=== PATIENT | male | born 1995 | race Caucasian/White ===

== ENCOUNTER 2020-04-10 17:07 | Emergency (ER) | payer OTHER, SELFPAY ==
--- NOTE | ~2020-04-10 | CT_ITS ---
EXAMINATION: CT abdomen pelvis w con INDICATION: Periumbilical/right lower quadrant pain TECHNIQUE: Computed tomographic images of the abdomen and pelvis were obtained after the administrati on of 100 cc of Omnipaque 350 intravenous contrast. The dose-length product (DLP) was 1502.33 mGy-cm. Automated exposure control and iterative reconstruction technique were employed. COMPARISON: None available FINDINGS: The lung bases are clear. The heart size is normal. The liver, pancreas, gallbladder, and a drenal glands are normal. There is mild splenomegaly, likely related to body habitus. There is patchy perfusion of the kidneys. No pathologically enlarged abdominal or pelvic lymph nodes are identified. There is no free intraperitoneal gas or evidence of bowel obstruction. The appendix is normal. There is an H shaped T11 vertebra. IMPRESSION: 1. Patchy perfusion of the kidneys which would normally suggest pyelonephritis but is of unclear sign ificance given patient's normal urinalysis. Normal appendix. Reviewed, dictated and finalized at location A. EDGE SEWER IMPRESSION: 1. Patchy perfusion of the kidneys which would normally suggest pyelonephritis but is of unclear significance given patient's normal urinalysis. Normal append ix.
[2020-04-10 17:26] VITALS: BP 148/91; PULSE 106; RESP 22; TEMP 36.4; O2SAT 100
[2020-04-10 17:54] LABS: Basophils Absolute Auto 0.1 K/mm3 (0.0-0.1); Basophils Percent Auto 0.3 % (0.2-1.2); Eosinophils Absolute Auto 0.3 K/mm3 (0-0.3); Eosinophils Percent Auto 1.7 % (0-4.4); Hematocrit 39.1 % (42.0-52.0); Hemoglobin 13.1 g/dL (14.0-18.0); Immature Granulocyte Absolute 0.22 K/mm3 (0.00-0.031); Immature Granulocyte Percent A 1.3 % (0-0.5); Lymphocytes Absolute Auto 2.33 K/mm3 (0.9-3.2); Lymphocytes Percent Auto 13.3 % (18.3-44.2); Mean Corpuscular HGB Conc 33.5 g/dl (32-36); Mean Corpuscular Volume 86.5 fl (80-100); Mean Platelet Volume 9.4 fl (7.4-10.4); Monocytes Absolute Auto 1.1 K/mm3 (0.1-0.6); Monocytes Percent Auto 6.4 % (2.6-8.5); Neutrophils Absolute Auto 13.5 K/mm3 (1.3-6.7); Platelet Count Result 296 k/mm3 (150-375); Red Blood Count 4.52 M/mm3 (4.6-6.20); Red Cell Distribution Width 13.1 % (11.5-14.5); White Blood Count 17.6 K/mm3 (4.5-10.0)
[2020-04-10 17:56] LABS: Add Urine Microscopic? NO; Appearance Urine Clear (Clear); Bilirubin Urine Negative (Negative); Blood Urine Negative (Negative); Color Urine Straw (Yellow); Glucose Urine UA Negative (Negative); Ketones Urine Negative (Negative); Leukocyte Esterase Ur Negative LEU/UL (Negative); Nitrate Urine Negative (Negative); Protein Urine Negative (Negative); Specific Grav Ur 1.008 (1.001-1.035); Urobilinogen Urine Negative mg/dL (<2.0)
[2020-04-10 18:08] LABS: Alanine Aminotransferase 18 U/L (4-50); Albumin Level 3.8 g/dL (3.5-5.1); Alkaline Phosphatase 118 U/L (38-126); Anion Gap 6 mmol/L (8-16); Aspartate Amino Transferase 24 U/L (17-59); Bilirubin,Total 0.3 mg/dL (0.2-1.3); Blood Urea Nitrogen 8 mg/dL (9-20); Calcium 8.9 mg/dL (8.4-10.2); Carbon Dioxide 30 mmol/L (22-30); Chloride 104 mmol/L (98-107); Estimated CRCL calculation 145 ml/min; Estimated Glomerular Filt Rate > 60; Glucose 109 mg/dL (75-110); Lipase 32 U/L (23-300); Potassium 3.4 mmol/L (3.4-5.0); Sodium 140 mmol/L (137-145)
--- NOTE | 2020-04-10 18:31 | ED.GENADULT ---
HPI - General Adult General Chief complaint: Abdominal Pain <DEV Pascal Last Filed: 04/10/20 20:36> Stated complaint: abdominal pain, right heel pain <DEV Pascal Last Filed: 04/10/20 20:36> Time Seen by Provider: 04/10/20 17:41 <DEV Pascal Last Filed: 04/10/20 20:36> Source: patient <DEV Pascal Last Filed: 04/10/20 20:36> Mode of arrival: ambulatory <DEV Pascal Last Filed: 04/10/20 20:36> Limitations: no limitations <DEV Pascal Last Filed: 04/10/20 20:36> History of Present Illness HPI narrative: 24-year-old male who is here with complaint of right lower quadrant and periumbilical pain that he states started this morning. Pain is worse when he walks. He has had diarrhea for greater than 1 week. Diarrhea is normal in color, no vomiting. States that he has chills but does not have a fever. He did eat this a.m. <Kate Adames PA-C - Last Filed: 04/10/20 20:36> Onset (ago): hour(s) <DEV Pascal Last Filed: 04/10/20 20:36> Radiation: periumbilical <DEV Pascal Last Filed: 04/10/20 20:36> Severity: moderate <DEV Pascal Last Filed: 04/10/20 20:36> Quality: stabbing <DEV Pascal Last Filed: 04/10/20 20:36> Relieving factors: none <DEV Pascal Last Filed: 04/10/20 20:36> Related Data Home medications: Home Medications Medication Instructions Recorded Confirmed divalproex [Depakote] 500 mg PO Q8H 04/11/20 04/12/20 hydroxyzine HCl 10 mg PO QID 04/11/20 04/12/20 loratadine 10 mg PO DAILY 04/11/20 04/11/20 naproxen 500 mg PO DAILY 04/11/20 04/12/20 orphenadrine citrate 100 mg PO DAILY 04/11/20 04/12/20 quetiapine 300 mg PO BID 04/11/20 04/11/20 acetaminophen 650 mg PO Q4-6M PRN 04/12/20 04/12/20 cholecalciferol (vitamin D3) 50,000 mg PO WEEKLY 04/12/20 04/12/20 fluoxetine 40 mg PO DAILY 04/12/20 04/12/20 <Kate Adames PA-C - Last Filed: 04/10/20 20:36> Allergies/adverse reactions: Allergies Allergy/AdvReac Type Severity Reaction Status Date / Time No Known Allergies Allergy Verified 04/12/20 00:08 <Kate Adames PA-C - Last Filed: 04/10/20 20:36> Review of Systems Review of Systems: All systems reviewed & are unremarkable except as noted in HPI and below <Kate Adames PA-C - Last Filed: 04/10/20 20:36> [facility] Past Medical History Medical History: Medical History Anxiety Cataract Depression Muscular dystrophy <Kate Adames PA-C - Last Filed: 04/10/20 20:36> Surgical History Surgical History: Surgical History H/O cataract removal with insertion of prosthetic lens History of biopsy History of muscle biopsy History of hernia repair As an History of mandibular surgery Hx of LASIK <DEV Pascal Last Filed: 04/10/20 20:36> Social History Social History: Social History Smoking status: Never smoker Alcohol intake: current Drinks per week: 1 Substance use: never Gender identity (if verbalized by the patient): Male Spiritual care concerns: No <Kate Adames PA-C - Last Filed: 04/10/20 20:36> Exam Const: General: no acute distress and alert <DEV Pascal Last Filed: 04/10/20 20:36> Nutritional Appearance: obese <DEV Pascal Last Filed: 04/10/20 20:36> Orientation/consciousness: patient oriented x3 <DEV Pascal Last Filed: 04/10/20 20:36> HENMT: Head: normal to inspection <DEV Pascal Last Filed: 04/10/20 20:36> Eyes: Conjunctivae: conjunctivae normal <DEV Pascal Last Filed: 04/10/20 20:36> Resp: Effort & Inspection: normal respiratory effort <DEV Psacal Filed
--- NOTE | 2020-04-10 18:45 | ER_ITS ---
This report was recreated on May 28, 2020. Original report was signed by Dr. Addy Hauser on April 13, 2020 at 0148. HPI - General Adult General Chief complaint: Abdominal Pain <DEV Pascal Last Filed: 04/10/20 20:36> Stated complaint: abdominal pain, right heel pain <DEV Pascal Last Filed: 04/10/20 20:36> Time Seen by Provider: 04/10/20 17:41 <DEV Pascal Last Filed: 04/10/20 20:36> Source: patient <DEV Pascal Last Filed: 04/10/20 20:36> Mode of arrival: ambulatory <DEV Pascal Last Filed: 04/10/20 20:36> Limitations: no limitations <DEV Pascal Last Filed: 04/10/20 20:36> History of Present Illness HPI narrative: 24-year-old male who is here with complaint of right lower quadrant and periumbilical pain that he states started this morning. Pain is worse when he walks. He has had diarrhea for greater than 1 week. Diarrhea is normal in color, no vomiting. States that he has chills but does not have a fever. He did eat this a.m. <Kate Admaes PA-C - Last Filed: 04/10/20 20:36> Onset (ago): hour(s) <DEV Pascal Last Filed: 04/10/20 20:36> Radiation: periumbilical <DEV Pascal Last Filed: 04/10/20 20:36> Severity: moderate <DEV Pascal Last Filed: 04/10/20 20:36> Quality: stabbing <DEV Pascal Last Filed: 04/10/20 20:36> Relieving factors: none <DEV Pascal Last Filed: 04/10/20 20:36> Related Data Home medications: Home Medications Medication Instructions Recorded Confirmed divalproex [Depakote] 500 mg PO Q8H 04/11/20 04/12/20 hydroxyzine HCl 10 mg PO QID 04/11/20 04/12/20 loratadine 10 mg PO DAILY 04/11/20 04/11/20 naproxen 500 mg PO DAILY 04/11/20 04/12/20 orphenadrine citrate 100 mg PO DAILY 04/11/20 04/12/20 quetiapine 300 mg PO BID 04/11/20 04/11/20 acetaminophen 650 mg PO Q4-6M PRN 04/12/20 04/12/20 cholecalciferol (vitamin D3) 50,000 mg PO WEEKLY 04/12/20 04/12/20 fluoxetine 40 mg PO DAILY 04/12/20 04/12/20 <Kate Adames PA-C - Last Filed: 04/10/20 20:36> Allergies/adverse reactions: Allergies Allergy/AdvReac Type Severity Reaction Status Date / Time No Known Allergies Allergy Verified 04/12/20 00:08 <Kate Adames PA-C - Last Filed: 04/10/20 20:36> Review of Systems Review of Systems: All systems reviewed & are unremarkable except as noted in HPI and below <Kate Adames PA-C - Last Filed: 04/10/20 20:36> [facility] Past Medical History Medical History: Medical History Anxiety Cataract Depression Muscular dystrophy <Kate Adames PA-C - Last Filed: 04/10/20 20:36> Surgical History Surgical History: Surgical History H/O cataract removal with insertion of prosthetic lens History of biopsy History of muscle biopsy History of hernia repair As an infant History of mandibular surgery Hx of LASIK <Kate Adames PA-C - Last Filed: 04/10/20 20:36> Social History Social History: Social History Smoking status: Never smoker Alcohol intake: current Drinks per week: 1 Substance use: never Gender identity (if verbalized by the patient): Male Spiritual care concerns: No <Kate Adames PA-C - Last Filed: 04/10/20 20:36> Exam Const: General: no acute distress and alert <Kate Adames PA-C - Last Filed: 04/10/20
[2020-04-10 19:00] VITALS: BP 136/78; PULSE 88; RESP 16; O2SAT 99
[2020-04-10] MEDS: SODIUM CHLORIDE 0.9% IV 1,000 ML 999 ML IV CONT (19:00)
[2020-04-10] MEDS: KETOROLAC 30 MG/ML VIAL (*BKC) IV PUSH (21:03)
[2020-04-10 21:05] VITALS: BP 136/80; PULSE 78; RESP 14; O2SAT 99
[2020-04-10 21:50] VITALS: BP 138/77; PULSE 78; RESP 16; O2SAT 99
== END 2020-04-10 21:52 | disposition home or self-care (01) ==
PROVIDERS: Emergency Medicine; Emergency Provider General Practice
DX: R10.33 Periumbilical pain (principal); R19.7 Diarrhea, unspecified; G71.00 Muscular dystrophy, unspecified; F41.9 Anxiety disorder, unspecified; F32.9 Major depressive disorder, single episode, unspecified; Z98.49 Cataract extraction status, unspecified eye; Z96.1 Presence of intraocular lens
CPT/HCPCS: 36415; 74177; 80053; 81003; 83690; 85025; 96361; 96374; 99284; J1885; J7030; Q9967

== ENCOUNTER 2020-04-11 15:49 | Observation (INO) | payer OTHER, SELFPAY ==
--- NOTE | ~2020-04-11 | CT_ITS ---
EXAMINATION: CT abdomen pelvis w con INDICATION: Abdominal pain and fever TECHNIQUE: Computed tomographic images of the abdomen and pelvis were obtained after the administrati on of 100 cc of Omnipaque 350 intravenous contrast. The dose-length product (DLP) was 1533.66 mGy-cm. Automated exposure control and iterative reconstruction technique were employed. COMPARISON: 04/10/2020 FINDINGS: The lung bases are clear. The heart size is normal. The liver, pancreas, gallbladder, and a drenal glands are normal. Mild patchy perfusion of the kidneys is again noted. No pathologically enla rged abdominal or pelvic lymph nodes are identified. There is no free intraperitoneal gas or evidence of bowel obstruction. An H shaped T11 vertebra is again noted. The appendix is normal. IMPRESSION: 1. Persistent patchy perfusion of the kidneys of unclear etiology or significance given normal urinal ysis. 2. Splenomegaly, possibly related to body habitus. Reviewed, dictated and finalized at location A. [facility] [employer] OPERATOR HELPER IMPRESSION: 1. Persistent patchy perfusion of the kidneys of unclear etiology or significan ce given normal urinalysis. 2. Splenomegaly, possibly related to body habitus.
--- NOTE | ~2020-04-11 | XR_ITS ---
EXAMINATION: XR chest 2V DATE: 04/11/2020 19:16 INDICATION: Cough and fever TECHNIQUE: PA and lateral views of the chest are obtained. COMPARISON: None available FINDINGS: The lungs are free of acute opacities. There is no pleural effusion or pneumothorax. The ca rdiomediastinal silhouette is normal. The visualized bones and soft tissues are unremarkable. IMPRESSION: 1. No acute cardiopulmonary abnormality. Reviewed, dictated and finalized at location A. ENTER FOR[employer]AN
[2020-04-11 16:43] VITALS: BP 145/94; PULSE 107; RESP 17; TEMP 36.8; O2SAT 100
[2020-04-11 16:56] LABS: Basophils Absolute Auto 0.1 K/mm3 (0.0-0.1); Basophils Percent Auto 0.3 % (0.2-1.2); Eosinophils Absolute Auto 0.2 K/mm3 (0-0.3); Eosinophils Percent Auto 1.1 % (0-4.4); Hematocrit 39.4 % (42.0-52.0); Hemoglobin 13.3 g/dL (14.0-18.0); Immature Granulocyte Absolute 0.18 K/mm3 (0.00-0.031); Immature Granulocyte Percent A 1.2 % (0-0.5); Lymphocytes Absolute Auto 2.04 K/mm3 (0.9-3.2); Lymphocytes Percent Auto 13.7 % (18.3-44.2); Mean Corpuscular HGB Conc 33.8 g/dl (32-36); Mean Corpuscular Volume 85.8 fl (80-100); Mean Platelet Volume 9.2 fl (7.4-10.4); Monocytes Absolute Auto 0.9 K/mm3 (0.1-0.6); Monocytes Percent Auto 6.3 % (2.6-8.5); Neutrophils Absolute Auto 11.5 K/mm3 (1.3-6.7); Neutrophils Percent Auto 77.4 % (45.5-73.1); Platelet Count Result 276 k/mm3 (150-375); Red Blood Count 4.59 M/mm3 (4.6-6.20); Red Cell Distribution Width 13.1 % (11.5-14.5); White Blood Count 14.9 K/mm3 (4.5-10.0)
[2020-04-11 17:05] LABS: Lactic Acid Reflex 2.6 mmol/L (0.7-2.1)
[2020-04-11 17:07] LABS: Alanine Aminotransferase 17 U/L (4-50); Albumin Level 3.7 g/dL (3.5-5.1); Alkaline Phosphatase 105 U/L (38-126); Anion Gap 7 mmol/L (8-16); Aspartate Amino Transferase 21 U/L (17-59); Bilirubin,Total 0.3 mg/dL (0.2-1.3); Blood Urea Nitrogen 6 mg/dL (9-20); Carbon Dioxide 29 mmol/L (22-30); Chloride 104 mmol/L (98-107); Estimated CRCL calculation 115 ml/min; Estimated Glomerular Filt Rate > 60; Glucose 123 mg/dL (75-110); Lipase 26 U/L (23-300); Potassium 3.3 mmol/L (3.4-5.0); Sodium 140 mmol/L (137-145)
--- NOTE | 2020-04-11 18:58 | ED.GENADULT ---
HPI - General Adult General Source: RN notes reviewed History of Present Illness HPI narrative: Patient presents to emergency department from home for abdominal pain. Patient states he has had abdominal pain for the past 3 days pain is located around the periumbilical area and does not radiate. States is associated with nausea as well as a fever up to 101 today he denies having any chest pain shortness of breath coughing or vomiting he does state he has had some diarrhea as well as pain with urination patient was seen in the emergency department yesterday and had a work-up with a leukocytosis and a CT scan showing patchy perfusion to the kidneys but had a normal UA and he was discharged on Flagyl Related Data Home Medications Medication Instructions Recorded Confirmed divalproex [Depakote] 500 mg PO Q8H 04/11/20 04/12/20 hydroxyzine HCl 10 mg PO QID 04/11/20 04/12/20 loratadine 10 mg PO DAILY 04/11/20 04/11/20 naproxen 500 mg PO DAILY 04/11/20 04/12/20 orphenadrine citrate 100 mg PO DAILY 04/11/20 04/12/20 quetiapine 300 mg PO BID 04/11/20 04/11/20 acetaminophen 650 mg PO Q4-6M PRN 04/12/20 04/12/20 cholecalciferol (vitamin D3) 50,000 mg PO WEEKLY 04/12/20 04/12/20 fluoxetine 40 mg PO DAILY 04/12/20 04/12/20 Allergies Allergy/AdvReac Type Severity Reaction Status Date / Time No Known Allergies Allergy Verified 04/12/20 00:08 Review of Systems Review of Systems: Narrative: Gen.: Reports fever ENT: Denies congestion Respiratory: Denies shortness of breath or cough CV: Denies chest pain or palpitations GI: Reports abdominal pain and nausea and diarrhea. Denies emesis reports dysuria Musculoskeletal: Denies back pain or muscle pain Neuro: Denies numbness, tingling, weakness or focal weakness Skin: Denies rash Except as documented, all other systems reviewed and negative [facility] Past Medical History Medical History Anxiety Cataract Depression Muscular dystrophy Surgical History Surgical History H/O cataract removal with insertion of prosthetic lens History of biopsy History of muscle biopsy History of hernia repair As an History of mandibular surgery Hx of LASIK Social History Social History Smoking status: Never smoker Alcohol intake: current Drinks per week: 1 Substance use: never Gender identity (if verbalized by the patient): Male Spiritual care concerns: No Exam Narrative: Exam Narrative: APPEARANCE: No acute distress, nontoxic, resting in bed HEENT: Normocephalic, atraumatic, OMM RESPIRATORY: No respiratory distress, clear to auscultation bilaterally with no rhonchi wheezing or rales CARDIOVASCULAR: RRR s murmur ABDOMINAL: Soft, nondistended tender palpation periumbilical and left lower quadrant no tenderness left upper quadrant right upper quadrant right lower quadrant no rebound or guarding, mild left flank tenderness MUSCULOSKELETAl: Moves all extremities. No clubbing, cyanosis or edema. NEURO: Awake and alert. Following commands, speech normal, no focal deficits SKIN:: Warm, dry. Normal Color PSYCHIATRIC: Normal affect/mood Course Course Emergency Course: Reviewed old records Discussed with urology Dr. Ng presentation work-up discussed the patient's CT scan from last night and current UA at this time with normal UA does not feel that this is a urologic process Called and discussed with Dr. Cosme presentation work-up. Agrees to consult this time. Request patient have Levaquin added onto Flagyl and will follow as inpatient agrees with plan to hold with CT right now Discussed with Dr. Miller presentation work-up discussed my conversations with previous consultants. At this time Dr. Miller requesting CT scan abdomen pelvis with the patient does have a new fever since yesterday as well as a lactic acid
[2020-04-11 19:27] VITALS: BP 148/94; PULSE 107; RESP 18; O2SAT 99
[2020-04-11] MEDS: SODIUM CHLORIDE 0.9% IV 1,000 ML 999 ML IV CONT (19:27)
[2020-04-11 19:35] LABS: CRP 3.6 mg/dL (<1.0)
[2020-04-11 19:37] LABS: Add Urine Microscopic? NO; Appearance Urine Clear (Clear); Bilirubin Urine Negative (Negative); Blood Urine Negative (Negative); Color Urine Straw (Yellow); Glucose Urine UA Negative (Negative); Ketones Urine Negative (Negative); Leukocyte Esterase Ur Negative LEU/UL (Negative); Nitrate Urine Negative (Negative); Protein Urine Negative (Negative); Specific Grav Ur 1.008 (1.001-1.035); Urobilinogen Urine Negative mg/dL (<2.0)
[2020-04-11 19:52] LABS: Reflex Lactic Acid Yes or No Add Lactic
[2020-04-11 20:33] LABS: Lactic Acid 1.5 mmol/L (0.7-2.1)
--- NOTE | 2020-04-11 21:24 | PM.IMHP ---
H&P: HPI History of Present Illness Date/Time: 04/11/20 21:24 Chief Complaint: lower abdominal pain for over 1 week Narrative: This is a 24 year old obese male with known depression who presented to the hospital for a return visit for severe lower abdominal pain for the past week. The patient reports that he was constipated about 5 weeks ago and was treated with a bowel boiler cleaner and an antibiotic. Since then he has had a few weeks of wattery diarrhea which is 3-4 times daily. He denies any blood in his stool. His lower abdominal pain is worse after urinating but he denies any dysuria. Over the past few days he has been more nauseated and today he had a fever of 101 F. He denies any vomiting tonight. He also denies any shortness of breath, cough, chest pain, palpitations, rectal bleeding, or LE swelling. His last meal was yesterday at lunch when he ate a sandwich. The patient was evaluated in the ER tonight and his WBC was found to be 14,900. Lactic acid was elevated at 2.6. CT abd/pelvis showed persistent patchy perfusion of the kidneys. General surgery has been consulted by ER provider and we have been asked to admit the patient to the hospital for continued care. He has no other complaints at this time. Review of Systems Review of Systems: All systems reviewed & are unremarkable except as noted in HPI and below PMFSH Past Medical History Medical History Cataract Depression Hernia Muscular dystrophy Surgical History Surgical History H/O cataract removal with insertion of prosthetic lens Social History Social History Smoking status: Never smoker Alcohol intake: current Drinks per week: 1 Substance use: never Gender identity (if verbalized by the patient): Male Spiritual care concerns: No Meds Home Medications and Allergies Home Medications Medication Instructions Recorded Confirmed Type divalproex [Depakote] 500 mg PO Q8H 04/11/20 04/12/20 History hydroxyzine HCl 10 mg PO QID 04/11/20 04/12/20 History loratadine 10 mg PO DAILY 04/11/20 04/11/20 History naproxen 500 mg PO DAILY 04/11/20 04/12/20 History orphenadrine citrate 100 mg PO DAILY 04/11/20 04/12/20 History quetiapine 300 mg PO BID 04/11/20 04/11/20 History acetaminophen 650 mg PO Q4-6M PRN 04/12/20 04/12/20 History cholecalciferol (vitamin D3) 50,000 mg PO WEEKLY 04/12/20 04/12/20 History fluoxetine 40 mg PO DAILY 04/12/20 04/12/20 History Allergies Allergy/AdvReac Type Severity Reaction Status Date / Time No Known Allergies Allergy Verified 04/12/20 00:08 Vital Signs Vital Signs - 24 hr 04/11/20 16:43 04/11/20 19:27 Temperature 36.8 C Pulse Rate 107 H 107 H Respiratory Rate 17 18 Blood Pressure 145/94 H 148/94 H Pulse Oximetry 100 99 Exam Const: General: cooperative, alert, awake and ill appearing Nutritional Appearance: well nourished and obese Orientation/consciousness: patient oriented x3 HENMT: Head: normal to inspection General nose exam: Normal external nose present Face and sinus: normal facial exam Mouth: Yes Normal oral and palatal mucosa present and Yes oropharynx normal Eyes: Pupils: Equal, round and reactive pupils present EOM: EOMs intact bilaterally Neck: Neck: supple and no JVD Thyroid: thyroid normal Lymphatic: lymphadenopathy not noted Resp: Effort & Inspection: normal respiratory effort Auscultation: clear to auscultation bilaterally Cardio: Rate: regular rate Rhythm: regular rhythm Heart sounds: no murmurs GI: Inspection: normal to inspection GI Palp: Yes abdominal tenderness (Lower abd++ ) Rectal Exam: deferred Skin: General skin exam: normal color and no rashes or lesions noted Neuro: General: patient oriented x3 Cranial nerves: Yes CN's II-XII intact bilaterally and Yes Equal, round and reactive pupils pres
[2020-04-11 21:29] VITALS: BP 137/101; PULSE 98; RESP 18; O2SAT 97
[2020-04-11] MEDS: metroNIDAZOLE 500 MG/ISO 100ML 500 MG/100 ML BAG 100 MG IVPB (21:31)
[2020-04-11 23:45] VITALS: BMI 51.2
--- NOTE | 2020-04-11 23:45 | PC.NURSE ---
This patient, Yash Baer II, was admitted to [facility] Surg Room 311-01. Patient/family oriented to hospital policies and general routines including ID bracelet, bed and alarms, visiting hours, pain management, procedures, bathroom and other care routines, personal items, smoking policy, room service/diet, and visiting hours. Information on how to activate the Rapid Response Team has been discussed. Patient/Family are encouraged to report perceived risks to care and to ask questions if they do not understand what they are told or what they should do.
[2020-04-12] MEDS: SODIUM CHLORIDE 0.9% IV 1,000 ML 125 ML IV CONT ×3 (00:03→23:24)
[2020-04-12] MEDS: MORPHINE SULFATE (*CRX) 2 MG/ML INJ IV PUSH ×2 (03:24→06:51)
[2020-04-12] MEDS: ONDANSETRON INJ 4 MG/2 ML VIAL IV PUSH (04:59)
[2020-04-12] MEDS: metroNIDAZOLE 500 MG/ISO 100ML 500 MG/100 ML BAG 100 MG IVPB ×4 (04:59→23:25)
[2020-04-12 06:00] VITALS: BP 144/93; PULSE 89; RESP 20; TEMP 36.3; O2SAT 99
[2020-04-12 06:28] LABS: Basophils Absolute Auto 0.1 K/mm3 (0.0-0.1); Basophils Percent Auto 0.4 % (0.2-1.2); Eosinophils Absolute Auto 0.1 K/mm3 (0-0.3); Hematocrit 36.2 % (42.0-52.0); Immature Granulocyte Absolute 0.14 K/mm3 (0.00-0.031); Lymphocytes Absolute Auto 1.68 K/mm3 (0.9-3.2); Lymphocytes Percent Auto 12.3 % (18.3-44.2); Mean Corpuscular HGB Conc 33.1 g/dl (32-36); Mean Corpuscular Hemoglobin 28.5 pg (26-34); Mean Platelet Volume 9.1 fl (7.4-10.4); Monocytes Absolute Auto 0.9 K/mm3 (0.1-0.6); Monocytes Percent Auto 6.5 % (2.6-8.5); Neutrophils Absolute Auto 10.8 K/mm3 (1.3-6.7); Neutrophils Percent Auto 78.8 % (45.5-73.1); Platelet Count Result 283 k/mm3 (150-375); Red Blood Count 4.21 M/mm3 (4.6-6.20); Red Cell Distribution Width 13.1 % (11.5-14.5); White Blood Count 13.6 K/mm3 (4.5-10.0)
[2020-04-12 06:46] LABS: Alanine Aminotransferase 16 U/L (4-50); Albumin Level 3.6 g/dL (3.5-5.1); Alkaline Phosphatase 101 U/L (38-126); Anion Gap 6 mmol/L (8-16); Aspartate Amino Transferase 19 U/L (17-59); Bilirubin,Total 0.4 mg/dL (0.2-1.3); Blood Urea Nitrogen 7 mg/dL (9-20); Calcium 8.9 mg/dL (8.4-10.2); Carbon Dioxide 28 mmol/L (22-30); Chloride 111 mmol/L (98-107); Estimated CRCL calculation 133 ml/min; Estimated Glomerular Filt Rate > 60; Glucose 116 mg/dL (75-110); Potassium 3.9 mmol/L (3.4-5.0); Sodium 145 mmol/L (137-145)
--- NOTE | 2020-04-12 10:08 | PM.CNGS ---
Assessment and Plan Assessment and plan (1) Abdominal pain: Qualifiers: Abdominal location: unspecified location Qualified Code(s): R10.9 - Unspecified abdominal pain Code(s): R10.9 - Unspecified abdominal pain Status: Acute Assessment and Plan: Unclear etiology for his abdominal pain. CT scan of the abdomen and pelvis from 04/10 and 04/11 both suggest patchy perfusion of the kidney which would typically suggest pyelonephritis, but both urinalysis were completely normal. Along with these findings, he has now developed urinary complaints over the past few days, including frequency, urgency, and suprapubic pain with voiding and post-voiding. He has associated leukocytosis and a slightly elevated lactic acid on admission. No abnormalities of the appendix or findings of diverticulosis/itis on the CT that could account for abdominal pain. Bowel appears normal. No indication for surgical intervention at this time. We would recommend to continue with broad-spectrum IV antibiotics and consult Urology for their input. Would also recommend stool cultures, including C.Diff testing due to his diarrhea. I discussed the case with the Hospitalist, who will also order STD testing. We will continue to follow along, and if there is no improvement in the next few days, then we could consider repeating imaging. Thank you for allowing us to see the patient in consultation. (2) Abnormal CT of the abdomen: Code(s): R93.5 - Abnormal findings on diagnostic imaging of other abdominal regions, including retroperitoneum Status: Acute Assessment and Plan: CT scan from 04/10/20 and 04/11/20 suggests patchy perfusion of the kidneys, which would typically suggest pyelonephritis. Urinalysis normal from both ER visits. Although UA is normal, he is also having urinary complaints and lower abdominal pain. Will consult Urology for their input. (3) Urinary frequency: Code(s): R35.0 - Frequency of micturition Status: Acute (4) Severe sepsis: Code(s): A41.9 - Sepsis, unspecified organism; R65.20 - Severe sepsis without septic shock Status: Acute Assessment and Plan: Criteria met on admission with leukocytosis, tachycardia, and increased lactic acid. Lactic acid 2.6 on admission, but down to 1.5 after IV fluid hydration. WBC trending down to 13,000 today. Blood cultures pending. Continue IV fluid hydration and broad-spectrum IV antibiotics. Monitor labs. (5) Leukocytosis: Code(s): D72.829 - Elevated white blood cell count, unspecified Status: Acute Assessment and Plan: WBC trending down, monitor labs. See above plan. Additional Plan I discussed the patient's case and plan of care with Dr. Cosme. History of Present Illness Consult details Consult date: 04/12/20 Reason for consult: abdominal pain Requesting physician: Addy Huggins DO Narrative: This is a 24-year-old male with a history of muscular dystrophy and depression, who presented to the ER with complaints of lower abdominal pain. The patient initially had complaints of a change in his bowel habits about 1 month ago, when he felt he was becoming constipation. He presented to [facility] and was treated for a kidney infection and given medication to help move his bowels. He states that they told him his kidneys appeared to have an infection but his urine was normal. He was sent home on antibiotics and completed them. He reports that for the past 3 weeks, he has had diarrhea with at least 3-4 bowel movements daily. He reports a poor appetite and intermittent nausea, but no vomiting. Then, a few days ago, he reported noticing urinary frequency and urinary urgency. He also began having lower abdominal pain, that was aggravated with voiding. He presented to the ER 2 days ago due to the new symptoms and abdominal pain. CT scan of the abdomen and pelvis at that time showed patchy perfusion of the kidneys splenomegaly, but otherwise normal CT
[2020-04-12 10:39] VITALS: PULSE 98; O2SAT 100
--- NOTE | 2020-04-12 12:50 | WPDURCON ---
Assessment and Plan Assessment and plan (1) Urinary frequency: Code(s): R35.0 - Frequency of micturition Status: Acute Assessment and Plan: Patient states he is having urinary frequency for him, but it is q 2-3 hours during the day and denies nocturia. He normally only urinates twice daily. The frequency, developed one week ago, I advised him that q 2-3 hours is a normal amount of time between urinations. (2) Abdominal pain: Qualifiers: Abdominal location: unspecified location Qualified Code(s): R10.9 - Unspecified abdominal pain Code(s): R10.9 - Unspecified abdominal pain Status: Acute Assessment and Plan: It is unexplained on CT, leukocytosis is of concern, however not related to pyelonephritis d/t the patchy perfusion being bilateral and his UA being normal. Pyelonephritis tends to be unilateral with a UA that is suggestive of a UTI and symptoms which usually include but are not limited to: flank pain, hematuria or frequency q 30 minutes to an hour. This pain does not appear to be from a urologic source. (3) Abnormal CT of the abdomen: Code(s): R93.5 - Abnormal findings on diagnostic imaging of other abdominal regions, including retroperitoneum Status: Acute Assessment and Plan: I reviewed the CT with Dr. Saldana and Kidneys, Ureters and Bladder are all normal. Creatinine is also normal. No further evaluation needed at this time. Urology Consult Note HPI Date Seen: 04/12/20 Requesting Physician: Gill Suresh PA-C Primary Care Provider: [facility] REGISTRAR PHYSICIAN Consult Narrative Narrative: Yash Baer II is a 24 year old male who presented to the ER on 04/10/2020 initially for abdominal pain that is periumbilical and has been present for 3 days prior, accompanied by nausea, dysuria and diarrhea. He states he had a fever at home but has no thermometer to know for sure. He has a history of Muscular Dystrophy. His CT on 04/10/2020 shows patchy perfusion of the bilateral kidneys of unclear etiology d/t a normal UA. He was sent home with Flagyl, but returned yesterday and had a repeat CT scan which showed persistent patchy perfusion of the bilateral kidneys despite a normal UA. It also showed splenomegaly but suggested that it was d/t body habitus. His WBC is oddly elevated at 13,600 but was 14,900 initially and his creatinine is normal as well at 0.90. He remains in moderate to severe abdominal pain and pelvic pain today. He denies a history of any urologic issues. Review of Systems Cardiovascular: Cardiovascular: Denies chest pain Respiratory: Respiratory: Reports no additional respiratory complaints Gastrointestinal: Gastrointestinal: Reports abdominal pain, Denies nausea and Denies vomiting Genitourinary: Genitourinary: Denies genital pain, Reports dysuria, Denies flank pain, Denies scrotal swelling, Denies testicular pain, Denies urinary frequency, Denies urinary hesitancy and Denies urinary incontinence PMF Past Medical History Medical History Anxiety Cataract Depression Muscular dystrophy Surgical History Surgical History H/O cataract removal with insertion of prosthetic lens History of biopsy History of muscle biopsy History of hernia repair As an History of mandibular surgery Hx of LASIK Social History Social History Smoking status: Never smoker Alcohol intake: current Drinks per week: 1 Substance use: never Gender identity (if verbalized by the patient): Male Spiritual care concerns: No Meds Home Medications and Allergies Home Medications Medication Instructions Recorded Confirmed Type divalproex [Depakote] 500 mg PO Q8H 04/11/20 04/12/20 History hydroxyzine HCl 10 mg PO QID 04/11/20 04/12/20 History loratadine 10 mg PO DAILY 04/11/20 04/11/20
[2020-04-12 14:00] VITALS: BP 139/90; PULSE 92; RESP 18; TEMP 36.9; O2SAT 95
--- NOTE | 2020-04-12 14:23 | PM.IMPN ---
Progress Note: A&P Assessment and Plan (1) Abdominal pain: Qualifiers: Abdominal location: unspecified location Qualified Code(s): R10.9 - Unspecified abdominal pain Code(s): R10.9 - Unspecified abdominal pain Status: Acute Assessment and Plan: Unclear etiology at this time -CT abnormality with the kidneys not likely the cause -UA negative -patient is having diarrhea, will obtain stool cultures -will check for STIs -no signs of foreign object on CT, may consider ultrasound of the kidneys and bladder -he has seen the surgeon and urology as well -may be functional abdominal pain/IBS. If workup is negative may need to follow-up outpatient with GI doctor and possibly get a colonoscopy and EGD -will do a trial of PPI (takes naproxen) and slowly add back in a diet (2) Severe sepsis: Code(s): A41.9 - Sepsis, unspecified organism; R65.20 - Severe sepsis without septic shock Status: Acute Assessment and Plan: Could be due to diarrhea or dehydration -continue Levaquin and Flagyl - blood cultures pending -WBC improving now 13.6 down from 17.6 (3) Hypokalemia: Code(s): E87.6 - Hypokalemia Status: Acute Assessment and Plan: Resolved (4) Depression: Qualifiers: Depression Type: unspecified Qualified Code(s): F32.9 - Major depressive disorder, single episode, unspecified Code(s): F32.9 - Major depressive disorder, single episode, unspecified Status: Acute Assessment and Plan: Chronic and stable -Restart home medications -QTc stable (5) Abnormal CT of the abdomen: Code(s): R93.5 - Abnormal findings on diagnostic imaging of other abdominal regions, including retroperitoneum Status: Acute Assessment and Plan: CT shows-Persistent patchy perfusion of the kidneys of unclear etiology or significance given normal urinalysis. and Splenomegaly, possibly related to body habitus. -Spoke with Dr. Stephenson, he suggests treating the acute (possible) GI infection and repeat the imaging in a few months. If it is abnormal, he can follow-up with him in the office Time Spent With Patient Time with patient: 25 - 35 minutes Subjective Date/time seen: 04/12/20 14:23 Interval history: Pt is a 24-year-old male here for abdominal pain. Patient was seen today and states he is still having periumbilical pain. He has not eat or drink anything since being here. He is also not had any diarrhea since yesterday. Pt denies nausea, vomiting, fevers, chills, constipation, chest pain, or shortness of breath. He states that he has some dysuria and denies STDs or placing anything in his urethra. Review of Systems Review of Systems: All systems reviewed & are unremarkable except as noted in HPI and below Exam Narrative: Exam Narrative: General: Overweight patient resting comfortably in bed in no acute distress HEENT: normocephalic Neck: supple Neuro: Alert and oriented x4 CV:RRR Resp:CTA Abd: Soft, non distended. Pain to palpation to the umbilicus area. No masses. Positive bowel sounds Extremities: No swelling, erythema, or pain to palpation. Objective Data Vital Signs Vital Signs: Vital Signs - 24 hr 04/11/20 16:43 04/11/20 19:27 04/11/20 21:29 Temperature 98.3 F Pulse Rate 107 H 107 H 98 Respiratory Rate 17 18 18 Blood Pressure 145/94 H 148/94 H 137/101 H Pulse Oximetry 100 99 97 04/12/20 06:00 04/12/20 10:39 04/12/20 14:00 Temperature 97.4 F L 98.4 F Pulse Rate 89 98 92 Respiratory Rate 20 18 Blood Pressure 144/93 H 139/90 Pulse Oximetry 99 100 95 Intake/Output Intake/Output: Intake & Output 04/09/20 04/10/20 04/11/20 04/12/20 23:59 23:59 23:59 23:59 Intake Total 1200 1200 Output Total 200 Balance 1200 1000 Meds/Results Medications: Active Medications Generic Name Dose Route Start Last Admin Trade Name Freq PRN Reason Stop Dose Admin Acetaminophen
--- NOTE | 2020-04-12 14:27 | ECG_ITS ---
Measurements Intervals [place] Rate: 92 P: -19 [place]: 158 QRS: 33 QRSD: 77 T: 1 QT: 335 QTc: 415 Interpretive Statements SINUS RHYTHM BORDERLINE T WAVE ABNORMALITY- INFERIOR LEADS BORDERLINE ECG Electronically Signed On 04-12-2020 15:09:41 CT TECHNICIAN by Lopez Fierro D.O.
[2020-04-12] MEDS: ACETAMINOPHEN 500 MG TABLET 1000 MG PO (15:06)
[2020-04-12] MEDS: hydrOXYzine HCL 10 MG TABLET PO ×2 (17:11→20:16)
[2020-04-12] MEDS: QUEtiapine FUMARATE 100 MG TABLET 300 MG PO (17:11)
[2020-04-12] MEDS: DIVALPROEX SODIUM DR 250 MG TABEC 500 MG PO ×2 (17:12→20:16)
[2020-04-12] MEDS: PANTOPRAZOLE 40 MG TABLET PO (20:16)
[2020-04-12 22:00] VITALS: BP 106/50; PULSE 82; RESP 18; TEMP 36.5; O2SAT 93
[2020-04-13] MEDS: ACETAMINOPHEN 500 MG TABLET 1000 MG PO (01:22)
[2020-04-13] MEDS: metroNIDAZOLE 500 MG/ISO 100ML 500 MG/100 ML BAG 100 MG IVPB ×2 (05:00→13:00)
[2020-04-13] MEDS: DIVALPROEX SODIUM DR 250 MG TABEC 500 MG PO ×2 (05:02→12:56)
[2020-04-13 05:42] VITALS: BP 138/91; PULSE 81; RESP 18; TEMP 36; O2SAT 100
[2020-04-13 06:22] LABS: Basophils Absolute Auto 0.1 K/mm3 (0.0-0.1); Basophils Percent Auto 0.4 % (0.2-1.2); Eosinophils Absolute Auto 0.1 K/mm3 (0-0.3); Hematocrit 40.5 % (42.0-52.0); Hemoglobin 13.1 g/dL (14.0-18.0); Immature Granulocyte Absolute 0.13 K/mm3 (0.00-0.031); Lymphocytes Absolute Auto 2.43 K/mm3 (0.9-3.2); Lymphocytes Percent Auto 19.6 % (18.3-44.2); Mean Corpuscular HGB Conc 32.3 g/dl (32-36); Mean Corpuscular Hemoglobin 28.4 pg (26-34); Mean Corpuscular Volume 87.7 fl (80-100); Mean Platelet Volume 9.4 fl (7.4-10.4); Monocytes Absolute Auto 0.8 K/mm3 (0.1-0.6); Monocytes Percent Auto 6.1 % (2.6-8.5); Neutrophils Absolute Auto 8.9 K/mm3 (1.3-6.7); Neutrophils Percent Auto 71.9 % (45.5-73.1); Platelet Count Result 292 k/mm3 (150-375); Red Blood Count 4.62 M/mm3 (4.6-6.20); White Blood Count 12.4 K/mm3 (4.5-10.0)
[2020-04-13 06:25] LABS: Potassium 3.9 mmol/L (3.4-5.0)
[2020-04-13 06:39] LABS: Anion Gap 7 mmol/L (8-16); Blood Urea Nitrogen 8 mg/dL (9-20); CRP 3.6 mg/dL (<1.0); Calcium 9.1 mg/dL (8.4-10.2); Carbon Dioxide 28 mmol/L (22-30); Chloride 109 mmol/L (98-107); Estimated CRCL calculation 120 ml/min; Estimated Glomerular Filt Rate > 60; Glucose 88 mg/dL (75-110); Phosphorus 5.2 mg/dL (2.5-4.5); Sodium 144 mmol/L (137-145)
[2020-04-13] MEDS: hydrOXYzine HCL 10 MG TABLET PO ×3 (08:48→17:24)
[2020-04-13] MEDS: QUEtiapine FUMARATE 100 MG TABLET 300 MG PO ×2 (08:49→17:24)
[2020-04-13] MEDS: FLUoxetine HCL 20 MG CAPSULE 40 MG PO (08:49)
[2020-04-13] MEDS: PANTOPRAZOLE 40 MG TABLET PO (08:49)
[2020-04-13] MEDS: LORATADINE 10 MG TABLET PO (08:49)
[2020-04-13] MEDS: SODIUM CHLORIDE 0.9% IV 1,000 ML 125 ML IV CONT ×2 (08:54)
[2020-04-13 08:57] VITALS: O2SAT 96
--- NOTE | 2020-04-13 12:07 | PM.PNGS ---
Progress Note: A&P Assessment and Plan (1) Abdominal pain: Qualifiers: Abdominal location: unspecified location Qualified Code(s): R10.9 - Unspecified abdominal pain Code(s): R10.9 - Unspecified abdominal pain Status: Acute Assessment and Plan: Unclear etiology for his abdominal pain. CT scan of the abdomen and pelvis from 04/10 and 04/11 both suggest patchy perfusion of the kidney which would typically suggest pyelonephritis, but both urinalysis were completely normal. Urology was consulted and felt this was not a urologic issue. Stool cultures, C. Diff pending. No longer complaining of diarrhea. Clinically improving. WBC improving, afebrile. No indication for surgical intervention at this time. Discussed the patient's case with the Hospitalist, who is planning to continue oral antibiotics on discharge. Since no indication for surgery, we will sign off at this point. Please let us know if there are any surgical needs in the future. (2) Abnormal CT of the abdomen: Code(s): R93.5 - Abnormal findings on diagnostic imaging of other abdominal regions, including retroperitoneum Status: Acute Assessment and Plan: Urology consulted and appreciate their recommendations. (3) Urinary frequency: Code(s): R35.0 - Frequency of micturition Status: Acute (4) Severe sepsis: Code(s): A41.9 - Sepsis, unspecified organism; R65.20 - Severe sepsis without septic shock Status: Acute Assessment and Plan: Criteria met on admission with leukocytosis, tachycardia, and increased lactic acid. Lactic acid 2.6 on admission, but normalized after IV fluid hydration. WBC trending down towards normal. Blood cultures NGTD. Management per primary team. (5) Leukocytosis: Code(s): D72.829 - Elevated white blood cell count, unspecified Status: Acute Assessment and Plan: WBC trending down. Management per primary team. Additional Plan I discussed the plan of care with Dr. Cosme. Subjective Subjective Date/Time Seen: 04/13/20 11:30 Patient reports: no new complaints, pain is less, tolerating a regular diet, flatus and no bowel movement Interval history: Patient seen this morning. Feeling better today. Abdominal pain has improved. No nausea or vomiting. No other complaints. Exam Const: General: no acute distress, alert and awake Nutritional Appearance: obese GI: Inspection: non-distended and obesity GI Palp: Yes Soft to palpation, Yes Tenderness to palpation present (GI) (tender in lower abd, worse in suprapubic, improved per pt), No Guarding due to palpation present (GI) and No Rebound tenderness present Auscultation: normal bowel sounds Skin: General skin exam: normal color Neuro: General: moves all extremities and no focal motor deficits Extrem: General: no clubbing, cyanosis or edema Psych: Mental Status: mental status grossly normal Insight: Good insight present (Psych) Judgement: Good judgement present (Psych) Objective Data Vital Signs Vital Signs: Vital Signs - 24 hr 04/12/20 14:00 04/12/20 22:00 04/13/20 05:42 Temperature 98.4 F 97.7 F 96.8 F L Pulse Rate 92 82 81 Respiratory Rate 18 18 18 Blood Pressure 139/90 106/50 L 138/91 H Pulse Oximetry 95 93 100 04/13/20 08:57 Temperature Pulse Rate Respiratory Rate Blood Pressure Pulse Oximetry 96 Intake/Output Intake/Output: Intake & Output 04/10/20 04/11/20 04/12/20 04/13/20 23:59 23:59 23:59 23:59 Intake Total 1200 2770 2250 Output Total 600 Balance 1200 2170 2250 Meds/Results Medications: Active Medications Generic Name Dose Route Start Last Admin Trade Name Freq PRN Reason Stop Dose Admin Acetaminophen 1,000 mg 04/12/20 13:43 04/13/20 01:22 Acetaminophen 500 Mg Tablet PO 1,000 mg Q6H PRN Administration Mild Pain (1-3) or Fever Divalproex Sodium 500 mg 04/12/20 14:30 04/13/20 05:[address] 250 Mg Tabec PO 500 mg Q
--- NOTE | 2020-04-13 12:45 | PM.DS ---
DS: Admitting Diagnosis Admitting Diagnosis Admitting Diagnosis: abdominal pain DS: Discharge Diagnosis Discharge Diagnosis (1) Abdominal pain: Qualifiers: Abdominal location: unspecified location Qualified Code(s): R10.9 - Unspecified abdominal pain Code(s): R10.9 - Unspecified abdominal pain Status: Acute Assessment and Plan: Unclear etiology at this time -CT abnormality with the kidneys not likely the cause -UA negative -patient was having diarrhea prior to admission but was unable to produce a stool sample while here -chlamydia, Trichomonas, and gonorrhea pending, will monitor until finalized -no signs of foreign object on CT and patient claims he did not take anything up his urethra -he has seen the surgeon and urology as well, no further recommendations -may be functional abdominal pain/IBS -started patient on PPI and stop his naproxen and suggest he see a GI doctor for EGD, colonoscopy (2) Severe sepsis: Code(s): A41.9 - Sepsis, unspecified organism; R65.20 - Severe sepsis without septic shock Status: Acute Assessment and Plan: Could be due to diarrhea or dehydration -will discharge on Flagyl and Augmentin - blood cultures showed no growth to date -WBC improving now 12.2 down from 17.6 (3) Hypokalemia: Code(s): E87.6 - Hypokalemia Status: Acute Assessment and Plan: Resolved (4) Depression: Qualifiers: Depression Type: unspecified Qualified Code(s): F32.9 - Major depressive disorder, single episode, unspecified Code(s): F32.9 - Major depressive disorder, single episode, unspecified Status: Acute Assessment and Plan: Chronic and stable -Restart home medications -QTc within normal limits (5) Abnormal CT of the abdomen: Code(s): R93.5 - Abnormal findings on diagnostic imaging of other abdominal regions, including retroperitoneum Status: Acute Assessment and Plan: CT shows-Persistent patchy perfusion of the kidneys of unclear etiology or significance given normal urinalysis. and Splenomegaly, possibly related to body habitus. -Spoke with Dr. Stephenson, he suggests treating the acute (possible) GI infection and repeat the imaging in a few months. If it is abnormal, he can follow-up with him in the office -educated patient on follow-up DS: Summary Hospital Course Hospital Course: Who presented emergency room for abdominal pain that was periumbilical with nausea, fever and diarrhea. Vitals in the ER were stable. White blood cell count initially 14.9, BMP showed potassium 3.3. Lactic acid initially elevated 2.6 which improved with IV fluids. CRP slightly high 3.6. UA not suspicious for UTI. Chest x-ray was negative. CT of the abdomen pelvis showed persistent patchy perfusion the kidneys of unclear etiology or significance given normal UA with splenomegaly likely due to body habitus. Patient was admitted to the hospitalist service for further workup. The patient's leukocytosis improved with Flagyl and Levaquin and I suspect there was some mild colitis although not seen on the CT since the patient had diarrhea. His leukocytosis had improved with antibiotic therapy. He had splenomegaly on CT but I do believe it is probably due to his body habitus and not lymphoma as a leukocytosis was improving and was predominantly neutrophils. The patient had multiple complaints while hospitalized. He had periumbilical abdominal pain which CT was negative for. He also had dysuria and frequency. He states he is not concern for STIs nor has he had any trauma or foreign objects to that area. Urology was consulted and did not recommend any further evaluation. I have checked him for STIs and they are pending. He did have an ingrown hair and his mons pubis but I do not suspect that was causing his infection. I told him this should be evaluated by his primary care physician in about a week or 2 to ensure
[2020-04-13 14:00] VITALS: BP 148/92; PULSE 93; RESP 16; TEMP 36.4; O2SAT 99
--- NOTE | 2020-04-20 08:27 | PC.NURSE ---
Chlamydia, Gonorrhea, tric are negative. Blood cx are negative Urine cx is negative
== END 2020-04-13 18:36 | disposition home or self-care (01) ==
LOC: ANHED 21:26 → ANH3MEDSUR 22:28
PROVIDERS: Emergency Medicine; Physician Assistant; Admitting Provider Family Medicine; Emergency Provider Emergency Medicine; Visit Provider Internal Medicine
DX: R10.9 Unspecified abdominal pain (principal); A41.9 Sepsis, unspecified organism; R65.20 Severe sepsis without septic shock; F32.9 Major depressive disorder, single episode, unspecified; R93.5 Abnormal findings on diagnostic imaging of other abdominal regions, including retroperitoneum; E66.9 Obesity, unspecified; Z68.43 Body mass index [BMI] 50.0-59.9, adult
CPT/HCPCS: 36415; 71046; 74177; 80048; 80053; 81003; 83605; 83690; 84100; 85025; 86140; 87040; 87081; 87086; 87491; 87591; 87661; 87804; 87808; 87880; 93005; 96361; 96365; 96366; 96367; 96375; 96376; 99285; A9270; G0378; G0379; J0131; J1956; J2270; J2405; J3480; J7030; J7060; Q9967

== ENCOUNTER 2020-04-18 16:12 | Emergency (ER) | payer OTHER, SELFPAY ==
--- NOTE | ~2020-04-18 | CT_ITS ---
EXAMINATION: CT abdomen pelvis wo con DATE: 04/18/2020 18:00 INDICATION: Lower abdominal pain. Dysuria. Hematuria. TECHNIQUE: Computed tomography (CT) of the abdomen and pelvis was performed without intravenous contr ast. The dose-length product was 1482.07 mGy-cm. Automated exposure control and iterative reconstruct ion technique were employed. COMPARISON: CT dated the 04/11/2020. FINDINGS: Lung bases are unremarkable. No significant pleural or pericardial effusion. Heart size is normal. No significant vascular abnormality. No lymphadenopathy. The liver, spleen, pancreas, adrenal glands and kidneys are unremarkable. No hydronephrosis. Bladder is not well distended. No lymphadenopathy. No free air or free fluid. Gallbladder is present. Nonobst ructive bowel gas pattern. Normal appendix. 8 shaped T11 vertebra redemonstrated, likely developmenta l. Accentuated kyphosis at this level. IMPRESSION: 1. No acute abdominal abnormality. Reviewed, dictated and finalized at location A. [employer]GER
[2020-04-18 16:34] VITALS: BP 149/72; PULSE 135; RESP 16; TEMP 36.4; O2SAT 99
--- NOTE | 2020-04-18 17:04 | ED.ABDPAIN ---
HPI - Abdominal Pain General Chief Complaint: Abdominal Pain Stated Complaint: abd pain, abd labs Time Seen by Provider: 04/18/20 16:24 Source: patient Mode of arrival: ambulatory Limitations: no limitations History of Present Illness HPI narrative: This is a 23-year-old male that presents the emergency department for lower abdominal pain present over the last month. Reports the pain is a dull ache in nature. It is constant. Associated with dysuria. He was recently admitted to the hospital for this. There was no cause found for his abdominal pain. He was discharged on oral antibiotics. Reports he has continued these. He is currently taking Augmentin and Flagyl. Reports he has also continued to have diarrhea. Denies fever, or hematuria. Related Data Home Medications Medication Instructions Recorded Confirmed divalproex [Depakote] 500 mg PO Q8H 04/11/20 04/12/20 hydroxyzine HCl 10 mg PO QID 04/11/20 04/12/20 loratadine 10 mg PO DAILY 04/11/20 04/11/20 orphenadrine citrate 100 mg PO DAILY 04/11/20 04/12/20 quetiapine 300 mg PO BID 04/11/20 04/11/20 acetaminophen 650 mg PO Q4-6M PRN 04/12/20 04/12/20 cholecalciferol (vitamin D3) 50,000 mg PO WEEKLY 04/12/20 04/12/20 fluoxetine 40 mg PO DAILY 04/12/20 04/12/20 Allergies Allergy/AdvReac Type Severity Reaction Status Date / Time No Known Allergies Allergy Verified 04/12/20 00:08 Review of Systems Review of Systems: Narrative: CONSTITUTIONAL: Denies fever GASTROINTESTINAL: Reports abdominal pain, and diarrhea. Denies nausea, vomiting. GENITOURINARY: Reports dysuria. Denies hematuria. SKIN: Denies rash All systems reviewed & are unremarkable except as noted in HPI and below PMFSH Past Medical History Medical History Anxiety Cataract Depression Muscular dystrophy Surgical History Surgical History H/O cataract removal with insertion of prosthetic lens History of biopsy History of muscle biopsy History of hernia repair As an infant History of mandibular surgery Hx of LASIK Social History Social History Smoking status: Never smoker Alcohol intake: current Drinks per week: 1 Substance use: never Gender identity (if verbalized by the patient): Male Spiritual care concerns: No Exam Narrative: Exam Narrative: GENERAL: Well-appearing, obese, and in no acute distress. HEAD: Normocephalic, atraumatic. EYES: EOMI. CHEST: Clear to auscultation. No respiratory distress. No wheezes rales or rhonchi HEART: Regular rate and rhythm. No murmur heard. Normal peripheral pulses. ABDOMEN: Soft, nondistended, normal active bowel sounds. Mild tenderness to palpation throughout the lower abdomen, without guarding. No CVA tenderness EXTREMITIES: Normal range of motion. No edema. SKIN: Warm, dry, no rash. NEURO: No focal deficits. Alert and oriented x3. PSYCH: Normal mood and affect Course Vital Signs Vital signs: Vital Signs Temperature 97.6 F 04/18/20 16:34 Pulse Rate 135 H 04/18/20 16:34 Respiratory Rate 16 04/18/20 16:34 Blood Pressure 149/72 H 04/18/20 16:34 Pulse Oximetry 99 04/18/20 16:34 Temperature 97.6 F 04/18/20 16:34 Pulse Rate 135 H 04/18/20 16:34 Respiratory Rate 16 04/18/20 16:34 Blood Pressure 149/72 H 04/18/20 16:34 Pulse Oximetry 99 04/18/20 16:34 MDM - Abdominal Pain MDM Narrative Medical decision making narrative: Patient presents the emergency department for lower abdominal pain and dysuria. Symptoms have been present over the last couple of weeks. Patient was recently evaluated in the hospital for complaints. No certain etiology was found. He was discharged on oral antibiotics. Reports he has been taking these as prescribed. He is afebrile and nontoxic-appearing. Tachycardic upon arrival, this responded to IV fluids. Hea
[2020-04-18 17:14] LABS: Basophils Absolute Auto 0.1 K/mm3 (0.0-0.1); Basophils Percent Auto 0.5 % (0.2-1.2); Eosinophils Absolute Auto 0.2 K/mm3 (0-0.3); Eosinophils Percent Auto 0.9 % (0-4.4); Hematocrit 43.7 % (42.0-52.0); Hemoglobin 14.5 g/dL (14.0-18.0); Immature Granulocyte Absolute 0.19 K/mm3 (0.00-0.031); Lymphocytes Absolute Auto 3.62 K/mm3 (0.9-3.2); Lymphocytes Percent Auto 18.4 % (18.3-44.2); Mean Corpuscular HGB Conc 33.2 g/dl (32-36); Mean Corpuscular Hemoglobin 28.8 pg (26-34); Mean Corpuscular Volume 86.9 fl (80-100); Mean Platelet Volume 9.4 fl (7.4-10.4); Monocytes Absolute Auto 1.2 K/mm3 (0.1-0.6); Neutrophils Absolute Auto 14.4 K/mm3 (1.3-6.7); Neutrophils Percent Auto 73.2 % (45.5-73.1); Platelet Count Result 366 k/mm3 (150-375); Red Blood Count 5.03 M/mm3 (4.6-6.20); Red Cell Distribution Width 13.2 % (11.5-14.5); White Blood Count 19.6 K/mm3 (4.5-10.0)
[2020-04-18 17:27] LABS: Alanine Aminotransferase 21 U/L (4-50); Albumin Level 4.2 g/dL (3.5-5.1); Alkaline Phosphatase 110 U/L (38-126); Anion Gap 9 mmol/L (8-16); Aspartate Amino Transferase 23 U/L (17-59); Bilirubin,Total 0.3 mg/dL (0.2-1.3); Blood Urea Nitrogen 6 mg/dL (9-20); Calcium 9.1 mg/dL (8.4-10.2); Carbon Dioxide 28 mmol/L (22-30); Chloride 103 mmol/L (98-107); Estimated CRCL calculation 144 ml/min; Estimated Glomerular Filt Rate > 60; Glucose 101 mg/dL (75-110); Lipase 50 U/L (23-300); Potassium 3.9 mmol/L (3.4-5.0); Sodium 140 mmol/L (137-145)
[2020-04-18] MEDS: SODIUM CHLORIDE 0.9% IV 1,000 ML 999 ML IV CONT (17:33)
[2020-04-18 17:39] LABS: Add Urine Microscopic? YES; Appearance Urine Clear (Clear); Bilirubin Urine Negative (Negative); Blood Urine Negative (Negative); Color Urine Yellow (Yellow); Glucose Urine UA Negative (Negative); Ketones Urine Negative (Negative); Leukocyte Esterase Ur Trace LEU/UL (Negative); Mucus Urine Rare /lpf; Nitrate Urine Negative (Negative); Protein Urine Negative (Negative); Specific Grav Ur 1.014 (1.001-1.035); Squamous Epithelial Cell Urine Rare /hpf (Few); Urobilinogen Urine Negative mg/dL (<2.0); WBC Urine 0-3 /hpf
== END 2020-04-18 19:47 | disposition home or self-care (01) ==
PROVIDERS: Physician Assistant; Emergency Provider Emergency Medicine; PCP Family Medicine
DX: R10.30 Lower abdominal pain, unspecified (principal); F41.9 Anxiety disorder, unspecified; F32.9 Major depressive disorder, single episode, unspecified
CPT/HCPCS: 36415; 74176; 80053; 81001; 83690; 85025; 96365; 96366; 99284; J0131; J7030

== ENCOUNTER 2020-05-08 09:21 | Emergency (ER) | payer OTHER, SELFPAY ==
[2020-05-08] VITALS (12 sets, daily range): BP systolic 131–169; BP diastolic 83–115; PULSE 92–117; RESP 18–22; TEMP 36.3–36.7; O2SAT 94–98
--- NOTE | ~2020-05-08 | XR_ITS ---
EXAMINATION: XR chest 1V portable EXAM DATE: 05/08/2020 10:10 INDICATION: Anterior chest pain, cough. Diarrhea. Recent COVID exposure. TECHNIQUE: Portable AP frontal chest x-ray was obtained. Comparison is made to prior examination from 04/11/2020. FINDINGS: New small amount of right midlung zone airspace disease, which could be small amount of acu te infection. The lungs are otherwise clear. There are no pleural effusions. The cardiomediastinal silhouette is within normal limits. There is no pneumothorax suspected. The bones and soft tissues are unremarkable. IMPRESSION: Small region acute right midlung zone airspace disease, could be pneumonia. Reviewed, dictated and finalized at location A. IMPRESSION: Small region acute right midlung zone airspace disease, could be pn eumonia.
--- NOTE | 2020-05-08 09:35 | ECG_ITS ---
Measurements Intervals [place] Rate: 110 P: -1 [place]: 145 QRS: 48 QRSD: 74 T: 5 QT: 315 QTc: 427 Interpretive Statements SINUS TACHYCARDIA BORDERLINE T WAVE ABNORMALITY- INFERIOR LEADS BASELINE ARTIFACT- II, III ABNORMAL ECG Electronically Signed On 05-08-2020 9:45:03 CDT by Lopez Fierro D.O.
[2020-05-08] MEDS: ASPIRIN 81 MG CHEWABLE TABLET 324 MG PO (09:43)
[2020-05-08 09:52] LABS: Basophils Percent Auto 0.2 % (0.2-1.2); Eosinophils Absolute Auto 0.2 K/mm3 (0-0.3); Eosinophils Percent Auto 1.4 % (0-4.4); Hematocrit 41.6 % (42.0-52.0); Hemoglobin 13.9 g/dL (14.0-18.0); Immature Granulocyte Absolute 0.13 K/mm3 (0.00-0.031); Immature Granulocyte Percent A 1.1 % (0-0.5); Lymphocytes Absolute Auto 2.64 K/mm3 (0.9-3.2); Lymphocytes Percent Auto 21.6 % (18.3-44.2); Mean Corpuscular HGB Conc 33.4 g/dl (32-36); Mean Corpuscular Hemoglobin 28.6 pg (26-34); Mean Corpuscular Volume 85.6 fl (80-100); Mean Platelet Volume 9.2 fl (7.4-10.4); Monocytes Absolute Auto 0.7 K/mm3 (0.1-0.6); Monocytes Percent Auto 5.4 % (2.6-8.5); Neutrophils Absolute Auto 8.6 K/mm3 (1.3-6.7); Neutrophils Percent Auto 70.3 % (45.5-73.1); Platelet Count Result 272 k/mm3 (150-375); Red Blood Count 4.86 M/mm3 (4.6-6.20); Red Cell Distribution Width 13.6 % (11.5-14.5); White Blood Count 12.2 K/mm3 (4.5-10.0)
[2020-05-08 10:04] LABS: INR 0.9; Partial Thromboplastin Time 27.9 SECONDS (22.3-36.8); Prothrombin Time 12.6 Seconds (11.1-14.7)
[2020-05-08 10:05] LABS: Alanine Aminotransferase 25 U/L (4-50); Albumin Level 4.1 g/dL (3.5-5.1); Alkaline Phosphatase 97 U/L (38-126); Anion Gap 7 mmol/L (8-16); Aspartate Amino Transferase 27 U/L (17-59); Bilirubin,Total 0.4 mg/dL (0.2-1.3); Blood Urea Nitrogen 5 mg/dL (9-20); Calcium 8.9 mg/dL (8.4-10.2); Carbon Dioxide 26 mmol/L (22-30); Chloride 108 mmol/L (98-107); Estimated CRCL calculation 224 ml/min; Estimated Glomerular Filt Rate > 60; Glucose 114 mg/dL (75-110); Potassium 3.9 mmol/L (3.4-5.0); Sodium 141 mmol/L (137-145)
[2020-05-08 10:16] LABS: Troponin I < 0.012 ng/mL (0.000-0.034)
[2020-05-08 10:27] LABS: Add Urine Microscopic? YES; Appearance Urine Cloudy (Clear); Bilirubin Urine Negative (Negative); Blood Urine Negative (Negative); Color Urine Yellow (Yellow); Glucose Urine UA Negative (Negative); Ketones Urine Negative (Negative); Leukocyte Esterase Ur Negative LEU/UL (Negative); Mucus Urine Rare /lpf; Nitrate Urine Negative (Negative); Protein Urine Negative (Negative); RBC Urine 0-2 /hpf (0-2); Specific Grav Ur 1.015 (1.001-1.035); Squamous Epithelial Cell Urine Rare /hpf (Few); Urobilinogen Urine Negative mg/dL (<2.0); WBC Urine 0-3 /hpf
--- NOTE | 2020-05-08 10:51 | ED.GENADULT ---
HPI - General Adult General Chief complaint: Unspecified Stated complaint: kidney's hurt /cp/cough/dysuria Time Seen by Provider: 05/08/20 09:41 Source: patient Mode of arrival: ambulatory Limitations: no limitations History of Present Illness HPI narrative: Patient presents with chief complaint of nonproductive cough causing chest soreness and a temperature of 100.7 ?F. Patient states that the symptoms started Thursday. Patient states this morning his temperature was 99.6. He denies taking any antipyretics. Patient states that his family is being interviewed today however he states he had chest soreness he thought he should come to the emergency department. Patient denies nausea, vomiting, diarrhea, shortness of breath. Related Data Home Medications Medication Instructions Recorded Confirmed divalproex [Depakote] 500 mg PO Q8H 04/11/20 04/12/20 hydroxyzine HCl 10 mg PO QID 04/11/20 04/12/20 loratadine 10 mg PO DAILY 04/11/20 04/11/20 orphenadrine citrate 100 mg PO DAILY 04/11/20 04/12/20 quetiapine 300 mg PO BID 04/11/20 04/11/20 acetaminophen 650 mg PO Q4-6M PRN 04/12/20 04/12/20 cholecalciferol (vitamin D3) 50,000 mg PO WEEKLY 04/12/20 04/12/20 fluoxetine 40 mg PO DAILY 04/12/20 04/12/20 Allergies Allergy/AdvReac Type Severity Reaction Status Date / Time No Known Allergies Allergy Verified 05/08/20 09:49 Review of Systems Review of Systems: Narrative: CONSTITUTIONAL: Reports low-grade fever denies chills, or sweats. EYES: Denies visual changes, redness, or discharge. ENT: Denies rhinorrhea, congestion, sore throat, or otalgia. CARDIOVASCULAR: Denies chest pain, palpitations, or edema. RESPIRATORY: Reports cough denies dyspnea. GASTROINTESTINAL: Denies abdominal pain, nausea, vomiting, or diarrhea. GENITOURINARY: Denies dysuria or hematuria. SKIN: Denies rash or itching. MUSCULOSKELETAL: Denies back pain, joint pain, or myalgia. NEUROLOGIC: Denies headache, numbness, dizziness, or weakness. PSYCHIATRIC: Denies anxiety or depression. [facility] Past Medical History Medical History (Updated 05/08/20 @ 10:57 by Charles Sky PA-C) Anxiety Cataract Depression Muscular dystrophy Obesity Surgical History Surgical History H/O cataract removal with insertion of prosthetic lens History of biopsy History of muscle biopsy History of hernia repair As an infant History of mandibular surgery Hx of LASIK Social History Social History Smoking status: Never smoker Alcohol intake: current Drinks per week: 1 Substance use: never Gender identity (if verbalized by the patient): Male Spiritual care concerns: No Exam Narrative: Exam Narrative: GENERAL: Well-appearing, well-nourished, and in no acute distress. Patient lying in bed playing on his tablet. Patient is talking without any issues or difficulties. Patient does not appear to be any discomfort. HEAD: Normocephalic, atraumatic. EYES: PERRLA and EOMI. NECK: Supple. No adenopathy or masses. Range of motion intact CHEST: Clear to auscultation. No respiratory distress. No wheezes rales or rhonchi HEART: Regular rate and rhythm. No murmur heard. Normal peripheral pulses. ABDOMEN: Soft, nontender, nondistended, normal active bowel sounds. EXTREMITIES: Normal range of motion. No edema. SKIN: Warm, dry, no rash. NEURO: No focal deficits. Alert and oriented x3. PSYCH: Normal mood and affect. Course Vital Signs Vital signs: Vital Signs Temperature 97.4 F L 05/08/20 09:27 Pulse Rate 117 H 05/08/20 09:27 Respiratory Rate 20 05/08/20 09:27 Blood Pressure 143/83 H 05/08/20 09:27 Pulse Oximetry 98 05/08/20 09:27 Temperature 98.0 F 05/08/20 09:30 Pulse Rate 98 05/08/20 10:22 Respiratory Rate 19 05/08/20 10:22 Blood Pressure 153/84 H 05/08/20 10:22 Pulse Oximetry 95 05/08/20 10:22 Medical Decision
[2020-05-08 18:30] LABS: SARS-CoV-2 RNA PCR Positive
== END 2020-05-08 11:12 | disposition home or self-care (01) ==
PROVIDERS: Physician Assistant; Emergency Provider Emergency Medicine; PCP Family Medicine
DX: U07.1 COVID-19 (principal); J12.82 Pneumonia due to coronavirus disease 2019; F41.9 Anxiety disorder, unspecified; F32.9 Major depressive disorder, single episode, unspecified; G71.00 Muscular dystrophy, unspecified; E66.9 Obesity, unspecified; Z68.42 Body mass index [BMI] 45.0-49.9, adult; R00.0 Tachycardia, unspecified; R94.31 Abnormal electrocardiogram [ECG] [EKG]
CPT/HCPCS: 36415; 71045; 80053; 81001; 84484; 85025; 85610; 85730; 93005; 99284; A9270; C9803; U0003; U0005

== ENCOUNTER 2020-05-19 16:41 | Emergency (ER) | payer OTHER, SELFPAY ==
--- NOTE | ~2020-05-19 | XR_ITS ---
EXAMINATION: XR chest 2V DATE: 05/19/2020 19:49 INDICATION: Cough TECHNIQUE: PA and lateral views of the chest are obtained. COMPARISON: 05/09/2019 FINDINGS: The lungs are free of acute opacities. There is no pleural effusion or pneumothorax. The ca rdiomediastinal silhouette is normal. The visualized bones and soft tissues are unremarkable. IMPRESSION: 1. No acute cardiopulmonary abnormality. Reviewed, dictated and finalized at location A.
[2020-05-19 17:14] VITALS: BP 136/84; PULSE 117; RESP 18; TEMP 36.7; O2SAT 98
--- NOTE | 2020-05-19 19:38 | ECG_ITS ---
Measurements Intervals [place] Rate: 110 P: -26 MN: 128 QRS: -19 QRSD: 74 T: -29 QT: 311 QTc: 422 Interpretive Statements SINUS TACHYCARDIA DELAYED PRECORDIAL R/S TRANSITION BORDERLINE ST-T WAVE ABNORMALITY- INFERIOR LEADS BASELINE ARTIFACT- II, ABNORMAL ECG Electronically Signed On 05-20-2020 7:47:19 CDT by Lopez Fierro D.O.
--- NOTE | 2020-05-19 19:38 | ED.WEAKNESS ---
HPI - Weakness General Chief complaint: Weakness Stated complaint: tired/wore out Time Seen by Provider: 05/19/20 19:33 Source: RN notes reviewed History of Present Illness HPI Narrative: Patient presents to emergency department from home for weakness. Patient states he has not been feeling well for the past 3 months with fatigue and generalized weakness. He states that the symptoms are worsened over the past several days states that he has been associated with some intermittent diarrhea but denies any fevers or chills, chest pain shortness of breath abdominal pain nausea vomiting or any other symptoms states he has been seen in the emergency department several times for his symptoms with no definitive answers. Patient did state he had a Covid test on Thursday that was negative Related Data Home Medications Medication Instructions Recorded Confirmed divalproex [Depakote] 500 mg PO Q8H 04/11/20 04/12/20 hydroxyzine HCl 10 mg PO QID 04/11/20 04/12/20 loratadine 10 mg PO DAILY 04/11/20 04/11/20 orphenadrine citrate 100 mg PO DAILY 04/11/20 04/12/20 quetiapine 300 mg PO BID 04/11/20 04/11/20 acetaminophen 650 mg PO Q4-6M PRN 04/12/20 04/12/20 cholecalciferol (vitamin D3) 50,000 mg PO WEEKLY 04/12/20 04/12/20 fluoxetine 40 mg PO DAILY 04/12/20 04/12/20 Allergies Allergy/AdvReac Type Severity Reaction Status Date / Time No Known Allergies Allergy Verified 05/08/20 09:49 Review of Systems Review of Systems: Narrative: Gen.: Denies fevers or chills Eyes: Denies eye pain or visual change ENT: Denies congestion Respiratory: Denies shortness of breath or cough CV: Denies chest pain or palpitations GI: Denies abdominal pain nausea, emesis reports intermittent diarrhea denies burning, urgency, frequency or hematuria Musculoskeletal: Denies back pain or muscle pain Neuro: See HPI Skin: Denies rash Except as documented, all other systems reviewed and negative [facility] Past Medical History Medical History Anxiety Cataract Depression Muscular dystrophy Obesity Surgical History Surgical History H/O cataract removal with insertion of prosthetic lens History of biopsy History of muscle biopsy History of hernia repair As an infant History of mandibular surgery Hx of LASIK Social History Social History Smoking status: Never smoker Alcohol intake: current Drinks per week: 1 Substance use: never Gender identity (if verbalized by the patient): Male Spiritual care concerns: No Exam Narrative: Exam Narrative: APPEARANCE: No acute distress, nontoxic, resting in bed EYES: EOMI HEENT: Normocephalic, atraumatic, OMM RESPIRATORY: No respiratory distress Clear to auscultation bilaterally with no rhonchi wheezing or rales. CARDIOVASCULAR: Regular rate and rhythm without murmurs rubs or gallops. ABDOMINAL: Soft, nontender, nondistended, no rebound or guarding MUSCULOSKELETAl: Moves all extremities. No clubbing, cyanosis or edema. NEURO: Awake and alert x 4Following commands, speech normal, no focal deficits SKIN:: Warm, dry. No rashes lesions or abrasions PSYCHIATRIC: Normal affect/mood, Course Course Emergency Course: Reviewed old records and patient did have a positive Covid test at our facility on May 08 he was unaware of Patient states he is scheduled get a colonoscopy next month for his intermittent diarrhea. Review old records. Patient consistently with mild sinus tachycardia in the upper 90s low 100s as well as chronic elevation of his white blood cell count. Discussed with patient results of workup and diagnosis. Discussed need for follow-up with primary care, proper use of medication, and reasons to return to the emergency department. Patient understands and agrees to current treatment plan Vital Signs Vital signs: Vital Signs Temperat
[2020-05-19] MEDS: SODIUM CHLORIDE 0.9% IV 1,000 ML 999 ML IV CONT ×2 (20:10→21:20)
[2020-05-19 20:13] LABS: Basophils Absolute Auto 0.1 K/mm3 (0.0-0.1); Basophils Percent Auto 0.5 % (0.2-1.2); Eosinophils Absolute Auto 0.2 K/mm3 (0-0.3); Hematocrit 39.5 % (42.0-52.0); Hemoglobin 13.1 g/dL (14.0-18.0); Immature Granulocyte Absolute 0.43 K/mm3 (0.00-0.031); Immature Granulocyte Percent A 2.5 % (0-0.5); Lymphocytes Absolute Auto 3.12 K/mm3 (0.9-3.2); Lymphocytes Percent Auto 18.1 % (18.3-44.2); Mean Corpuscular HGB Conc 33.2 g/dl (32-36); Mean Corpuscular Hemoglobin 28.4 pg (26-34); Mean Corpuscular Volume 85.5 fl (80-100); Mean Platelet Volume 9.3 fl (7.4-10.4); Neutrophils Absolute Auto 12.3 K/mm3 (1.3-6.7); Neutrophils Percent Auto 71.9 % (45.5-73.1); Platelet Count Result 298 k/mm3 (150-375); Red Blood Count 4.62 M/mm3 (4.6-6.20); Red Cell Distribution Width 13.5 % (11.5-14.5); White Blood Count 17.2 K/mm3 (4.5-10.0)
[2020-05-19 20:25] LABS: Alanine Aminotransferase 18 U/L (4-50); Alkaline Phosphatase 99 U/L (38-126); Anion Gap 7 mmol/L (8-16); Aspartate Amino Transferase 19 U/L (17-59); Bilirubin,Total 0.1 mg/dL (0.2-1.3); Blood Urea Nitrogen 8 mg/dL (9-20); Carbon Dioxide 27 mmol/L (22-30); Chloride 108 mmol/L (98-107); D Dimer 0.29 ug/mL (<0.48); Estimated CRCL calculation 190 ml/min; Estimated Glomerular Filt Rate > 60; Glucose 97 mg/dL (75-110); Lipase 36 U/L (23-300); Potassium 4.2 mmol/L (3.4-5.0); Sodium 142 mmol/L (137-145)
--- NOTE | 2020-05-19 20:50 | ECG_ITS ---
Measurements Intervals [place] Rate: 109 P: 23 DC: 166 QRS: 28 QRSD: 76 T: 4 QT: 325 QTc: 439 Interpretive Statements SINUS TACHYCARDIA BORDERLINE T WAVE ABNORMALITY- INFERIOR LEADS BASELINE ARTIFACT- I, II, III, AVR, AVF, V3-V6 ABNORMAL ECG Electronically Signed On 05-22-2020 10:43:59 CDT by Lopez Fierro D.O.
--- NOTE | 2020-05-19 21:34 | PC.NURSE ---
Pt given a urinal an hour ago and asked for a urine sample. Pt said he would try. RN just checked with patient and he said he hadnt tried yet but will now.
[2020-05-19 22:07] LABS: Add Urine Microscopic? YES; Appearance Urine Cloudy (Clear); Bilirubin Urine Negative (Negative); Blood Urine Negative (Negative); Color Urine Yellow (Yellow); Glucose Urine UA Negative (Negative); Ketones Urine Negative (Negative); Leukocyte Esterase Ur Negative LEU/UL (Negative); Mucus Urine Rare /lpf; Nitrate Urine Negative (Negative); Protein Urine 1+ mg/dL (Negative); RBC Urine 0-2 /hpf (0-2); Specific Grav Ur 1.021 (1.001-1.035); Squamous Epithelial Cell Urine Rare /hpf (Few); Urobilinogen Urine Negative mg/dL (<2.0); WBC Urine 0-3 /hpf
[2020-05-19 22:12] VITALS: BP 135/86; PULSE 103; RESP 18; O2SAT 100
[2020-05-19] MEDS: FAMOTIDINE 20 MG/2 ML VIAL IV PUSH (22:25)
[2020-05-19 22:27] VITALS: BP 119/68; PULSE 108; RESP 16; O2SAT 100
== END 2020-05-19 22:29 | disposition home or self-care (01) ==
PROVIDERS: Emergency Provider Emergency Medicine; PCP Family Medicine
DX: U07.1 COVID-19 (principal); F41.9 Anxiety disorder, unspecified; F32.9 Major depressive disorder, single episode, unspecified; G71.00 Muscular dystrophy, unspecified; E66.9 Obesity, unspecified; Z68.42 Body mass index [BMI] 45.0-49.9, adult; Z98.49 Cataract extraction status, unspecified eye; Z96.1 Presence of intraocular lens; R00.0 Tachycardia, unspecified; R94.31 Abnormal electrocardiogram [ECG] [EKG]
CPT/HCPCS: 36415; 71046; 80053; 81001; 83690; 85025; 85380; 93005; 96361; 96374; 99284; J7030

== ENCOUNTER → 2020-06-19 01:18 | Outpatient (CLI) | payer OTHER, SELFPAY ==
[2020-06-19 18:55] LABS: SARS-CoV-2 RNA PCR Negative
== END ==
PROVIDERS: PCP Family Medicine; Visit Provider Internal Medicine Gastroenterology
DX: Z01.812 Encounter for preprocedural laboratory examination (principal); Z20.822 Contact with and (suspected) exposure to COVID-19
CPT/HCPCS: C9803; U0003; U0005

== ENCOUNTER 2020-06-22 05:42 | Day surgery (SDC) | payer OTHER, SELFPAY ==
[2020-06-12 14:36] VITALS: BMI 49.6
[2020-06-22 11:56] VITALS: BP 126/91; PULSE 115; RESP 20; TEMP 36.5; O2SAT 98; BMI 47.8
[2020-06-22] MEDS: LACTATED RINGERS 1,000 ML 150 ML IV CONT (12:04)
--- NOTE | 2020-06-22 12:09 | WPDANESEPPF ---
Anes - Initial Pre Proc Eval Procedure: Operation Date: 06/22/20 13:15 Proposed Procedures p Esophagogastroduodenoscopy & Colonoscopy - Alfa Xie MD Date/Time: 06/22/20 12:09 Surgeon: Alfa Xie MD Pre Op Diagnosis: Neoplasm Screening Patient Data Age: 25 Gender: M Height: 5 ft 2 in Weight: 118.7 kg Last Vital Signs Temp 97.7 F 06/22/20 11:56 Pulse 115 H 06/22/20 11:56 Resp 20 06/22/20 11:56 BP 126/91 H 06/22/20 11:56 Pulse Ox 98 06/22/20 11:56 Allergies Allergy/AdvReac Type Severity Reaction Status Date / Time No Known Allergies Allergy Verified 06/22/20 11:54 Home Medications Medication Instructions Recorded Confirmed Type divalproex [Depakote] 500 mg PO Q8H 04/11/20 06/22/20 History hydroxyzine HCl 10 mg PO QID PRN 04/11/20 06/22/20 History loratadine 10 mg PO DAILY 04/11/20 06/22/20 History orphenadrine citrate 100 mg PO DAILY 04/11/20 06/22/20 History quetiapine 300 mg PO BID 04/11/20 06/22/20 History acetaminophen 650 mg PO Q4H PRN 04/12/20 06/22/20 History cholecalciferol (vitamin D3) 50,000 mg PO WEEKLY 04/12/20 06/22/20 History fluoxetine 40 mg PO DAILY 04/12/20 06/22/20 History pantoprazole 40 mg PO Q12HR #60 tablet 04/13/20 06/22/20 Rx benzonatate [Tessalon Perles] 100 mg PO TID PRN #20 cap 05/08/20 06/22/20 Rx Patient hx anesthesia problems: none Family hx anesthesia problems: none PMFSH Past Medical History Medical History Anxiety Cataract Depression Muscular dystrophy Obesity Surgical History Surgical History H/O cataract removal with insertion of prosthetic lens History of biopsy History of muscle biopsy History of hernia repair As an History of mandibular surgery Hx of PETERSON Social History Social History Smoking status: Never smoker Alcohol intake: current Drinks per week: 1 Alcohol use details: OCCASIONALLY Substance use: never Living arrangements: with family Gender identity (if verbalized by the patient): Male Spiritual care concerns: No Anes - Eval Final PreProcedure Day of Procedure 06/22/20 12:09 Patient weight: morbidly obese Heart: regular rate and rhythm Lungs: clear to auscultation Airway: Mallampati scale class II Neurological: alert and oriented Last oral intake: >/= 8 hours ASA classification: III Emergent: no Anesthetic plan: proceed Anesthesia type and monitoring: general GIVS and standard monitoring Informed Consent: The patient's anesthetic plan and its attendant risks and benefits were discussed with the patient/family/POA. Questions were solicited and answers provided to the satisfaction of the patient/family/POA.
--- NOTE | 2020-06-22 13:01 | PM.HPGS ---
History of Present Illness History of Present Illness Consent: Risks, benefits, and alternatives have been discussed and questions answered. Patient agrees to proceed with procedure. Chief complaint: Neoplasm Screening Narrative: Yash Baer II is a 25 year old male with intermittent nausea and also diarrhea since March, never had scopes. CT scan negative to explain symptoms Review of Systems Constitutional: Constitutional: Denies headache(s) and Denies weakness Eyes: Eyes: Denies blurry vision ENT: Reports Normal hearing present, Denies headache(s) and Denies neck pain Cardiovascular: Cardiovascular: Denies chest pain and Denies dyspnea Respiratory: Respiratory: Denies dyspnea Gastrointestinal: Gastrointestinal: Reports no additional gastrointestinal complaints Genitourinary: Genitourinary: Denies dysuria Musculoskeletal: Musculoskeletal: Denies neck pain Integumentary/Breasts: Skin/Breast: Denies dry skin Neurologic: Reports Normal hearing present, Denies headache(s) and Denies weakness Psychiatric: Psychiatric: Denies anxiety Endocrine: Endocrine: Denies change in body appearance Hematologic/Lymphatic: Hematologic/Lymphatic: Denies easy bleeding Allergic/Immunologic: Allergic/Immunologic: Denies urticaria PMFSH Past Medical History Medical History (Updated 06/22/20 @ 13:02 by Alfa Xie MD) Anxiety Cataract Depression Muscular dystrophy Nausea Obesity Surgical History Surgical History H/O cataract removal with insertion of prosthetic lens History of biopsy History of muscle biopsy History of hernia repair As an History of mandibular surgery Hx of LASIK Social History Social History Smoking status: Never smoker Alcohol intake: current Drinks per week: 1 Alcohol use details: OCCASIONALLY Substance use: never Living arrangements: with family Gender identity (if verbalized by the patient): Male Spiritual care concerns: No Meds Home Medications and Allergies Home Medications Medication Instructions Recorded Confirmed Type divalproex [Depakote] 500 mg PO Q8H 04/11/20 06/22/20 History hydroxyzine HCl 10 mg PO QID PRN 04/11/20 06/22/20 History loratadine 10 mg PO DAILY 04/11/20 06/22/20 History orphenadrine citrate 100 mg PO DAILY 04/11/20 06/22/20 History quetiapine 300 mg PO BID 04/11/20 06/22/20 History acetaminophen 650 mg PO Q4H PRN 04/12/20 06/22/20 History cholecalciferol (vitamin D3) 50,000 mg PO WEEKLY 04/12/20 06/22/20 History fluoxetine 40 mg PO DAILY 04/12/20 06/22/20 History pantoprazole 40 mg PO Q12HR #60 tablet 04/13/20 06/22/20 Rx benzonatate [Tessalon Perles] 100 mg PO TID PRN #20 cap 05/08/20 06/22/20 Rx Allergies Allergy/AdvReac Type Severity Reaction Status Date / Time No Known Allergies Allergy Verified 06/22/20 11:54 Vital Signs Vital Signs - 24 hr 06/22/20 11:56 Temperature 97.7 F Pulse Rate 115 H Respiratory Rate 20 Blood Pressure 126/91 H Pulse Oximetry 98 Exam Const: General: comfortable and no acute distress HENMT: General nose exam: Normal nares present Eyes: General: appearance normal, both eyes and all related structures Neck: Neck: no JVD Resp: Auscultation: clear to auscultation bilaterally Cardio: Rate: regular rate Rhythm: regular rhythm GI: Inspection: non-distended GI Palp: Yes Soft to palpation Skin: General skin exam: normal color Neuro: General: gait normal Speech: normal speech Extrem: General: normal to inspection Psych: Mental Status: mental status grossly normal Assessment and Plan Assessment and plan (1) Diarrhea in adult patient: Code(s): R19.7 - Diarrhea, unspecified Status: Inactive Assessment and Plan: colonoscopy with random bx (2) Nausea: Code(s): R11.0 - Nausea Status: Acute Asses
--- NOTE | 2020-06-22 13:34 | SUR.OPER ---
EGD START 1309, END 1314 COLONOSCOPY START 1318, END 1328
[2020-06-22 13:36] VITALS: BP 91/55; PULSE 104; RESP 27; O2SAT 94
[2020-06-22 13:43] VITALS: BP 91/55; PULSE 99; RESP 23; O2SAT 94
[2020-06-22 13:53] VITALS: BP 109/72; PULSE 104; RESP 19; O2SAT 94
== END 2020-06-22 14:49 | disposition home or self-care (01) ==
PROVIDERS: PCP Family Medicine; Visit Provider Internal Medicine Gastroenterology
PROC: 0DJ08ZZ Inspection of Upper Intestinal Tract, Via Natural or Artificial Opening Endoscopic (ICD-10-PCS; CPT 43235; principal; 2020-06-22 13:15)
DX: R19.7 Diarrhea, unspecified (principal); R11.0 Nausea; D12.4 Benign neoplasm of descending colon; K21.00 Gastro-esophageal reflux disease with esophagitis, without bleeding; K44.9 Diaphragmatic hernia without obstruction or gangrene; K29.50 Unspecified chronic gastritis without bleeding; K29.70 Gastritis, unspecified, without bleeding; E66.9 Obesity, unspecified; H26.9 Unspecified cataract; G71.00 Muscular dystrophy, unspecified; F41.9 Anxiety disorder, unspecified; F32.9 Major depressive disorder, single episode, unspecified; Z96.1 Presence of intraocular lens; Z98.49 Cataract extraction status, unspecified eye
CPT/HCPCS: 45385; 45380; 43239; 88305; J2001; J2704; J7120